=== PATIENT | male | born 1950 | race Caucasian/White ===

== ENCOUNTER → 2016-06-12 | Outpatient (CLI) | payer MEDICARE, OTHER ==
[~2016-06-12] VITALS: Ht 177.8 cm; Wt 103.9 kg
[~2016-06-12] MED LIST: ASPI81TA85 PO; ATOR40TA PO; HYDR25TAB PO; LIDOCAINE 2% INJ 100 MG/5 ML SDV (FOR ANES.) As Ordered ONE; LISI-538 PO; METF500T PO; NS 1,000 ML IV SCH; PROPOFOL 200 MG/20 ML VIAL As Ordered ONE; fentaNYL 100 MCG/2 ML INJECTION (J3010) As Ordered ONE
--- NOTE | 2016-06-12 09:04 | ROOR ---
Patient Name: Mateo Albright Procedure Date: 06/12/2016 8:48 AM Date of : 1950 Age: 66 Room: [facility] Gender: Male Note Status: Finalized Procedure: Upper GI endoscopy Indications: Epigastric abdominal pain, Indigestion Providers: Mateo CAMPBELL MD Referring MD: Colby Catalan Do Requesting Provider: Medicines: Monitored Anesthesia Care Complications: No immediate complications. Procedure: Pre-Anesthesia Assessment: - The heart rate, respiratory rate, oxygen saturations, blood pressure, adequacy of pulmonary ventilation, and response to care were monitored throughout the procedure. The Endoscope was introduced through the mouth, and advanced to the second part of duodenum. The upper GI endoscopy was accomplished without difficulty. The patient tolerated the procedure well. Findings: The examined esophagus was normal. Scattered mild inflammation characterized by erosions and erythema was found in the gastric antrum. Biopsies were taken with a cold forceps for Helicobacter pylori testing. The exam of the stomach was otherwise normal. Mildly erythematous mucosa was found in the first portion of the duodenum. Impression: - Normal esophagus. - Mild to moderate Gastritis. Biopsied. - Mild duodenitis. Recommendation: - Use Prilosec (omeprazole) 40 mg PO daily. - Telephone endoscopist for pathology results in 2 weeks. - (the script was sent to your pharmacy on file) - Reduce NSAID (aleve, motrin, ibuprofen etc) use if possible. try using tylenol instead Mateo Campbell MD Mateo CAMPBELL MD 06/12/2016 9:04:01 AM This report has been signed electronically. Number of Addenda: 0 Note Initiated On: 06/12/2016 8:48 AM Estimated Blood Loss: Estimated blood loss: none.
--- NOTE | 2016-06-12 09:23 | ROOR ---
Patient Name: Mateo Albright Procedure Date: 06/12/2016 8:52 AM Date of : 1950 Age: 66 Room: [facility] Gender: Male Note Status: Finalized Procedure: Colonoscopy Indications: Constipation Providers: Mateo CAMPBELL MD Referring MD: Colby Catalan DO Requesting Provider: Medicines: Monitored Anesthesia Care Complications: No immediate complications. Procedure: Pre-Anesthesia Assessment: - The heart rate, respiratory rate, oxygen saturations, blood pressure, adequacy of pulmonary ventilation, and response to care were monitored throughout the procedure. The Colonoscope was introduced through the anus and advanced to the cecum, identified by appendiceal orifice and ileocecal valve. The colonoscopy was performed without difficulty. The patient tolerated the procedure well. The quality of the bowel preparation was unsatisfactory. Findings: The perianal and digital rectal examinations were normal. (EXAM: Complete, PREP: Suboptimal) The colon appeared normal, without large polyps or masses. Smaller polyps could have been missed on this exam. Impression: - Preparation of the colon was unsatisfactory. - (EXAM: Complete, PREP: Suboptimal) - The entire examined colon is normal, without large polyps or masses. Smaller polyps could have been missed on this exam. . - No specimens collected. Recommendation: - Repeat colonoscopy in 1 year because the bowel preparation was suboptimal. Mateo Campbell MD Mateo CAMPBELL MD 06/12/2016 9:22:54 AM This report has been signed electronically. Number of Addenda: 0 Note Initiated On: 06/12/2016 8:52 AM Estimated Blood Loss: Estimated blood loss: none.
[2016-06-12 09:50] VITALS: BP 149/72
== END | disposition home or self-care (01) ==
LOC: M OPP 08:00
PROVIDERS: ATTEND Internal Medicine Gastroenterology
DX: K59.00 Constipation, unspecified (principal); K30 Functional dyspepsia; K29.70 Gastritis, unspecified, without bleeding; K29.80 Duodenitis without bleeding; B96.81 Helicobacter pylori [H. pylori] as the cause of diseases classified elsewhere; I10 Essential (primary) hypertension; E78.00 Pure hypercholesterolemia, unspecified; E11.9 Type 2 diabetes mellitus without complications; K21.9 Gastro-esophageal reflux disease without esophagitis; I51.9 Heart disease, unspecified; Z97.2 Presence of dental prosthetic device (complete) (partial); Z87.891 Personal history of nicotine dependence; Z79.82 Long term (current) use of aspirin; Z79.899 Other long term (current) drug therapy; Z79.84 Long term (current) use of oral hypoglycemic drugs; Z88.0 Allergy status to penicillin
CPT/HCPCS: 43239; 45378; 88305; 99156; 99157; J3010

== ENCOUNTER → 2019-02-20 | Outpatient (REF) ==
[~2019-02-20] MED LIST changes: -ATOR40TA PO; +ATOR40TA75 PO; -LIDOCAINE 2% INJ 100 MG/5 ML SDV (FOR ANES.) As Ordered ONE; -METF500T PO; +METF500T13 PO; -NS 1,000 ML IV SCH; -PROPOFOL 200 MG/20 ML VIAL As Ordered ONE; -fentaNYL 100 MCG/2 ML INJECTION (J3010) As Ordered ONE
== END ==
LOC: M LAB LCGH 14:41
PROVIDERS: ATTEND Surgery
DX: D12.6 Benign neoplasm of colon, unspecified (principal); Z09 Encounter for follow-up examination after completed treatment for conditions other than malignant neoplasm; Z12.11 Encounter for screening for malignant neoplasm of colon; Z86.010 Personal history of colon polyps